=== PATIENT | male | born 1965 | race Caucasian/White ===

== ENCOUNTER 2017-03-18 14:01 | Emergency (ER) | payer OTHER, BC ==
[2017-03-18] MEDS ORDERED: Ketorolac 60 MG/2 ML SDV IM ONE (14:34)
--- NOTE | 2017-03-18 14:35 | EDM.PDOC ---
ED HPI GENERAL MEDICAL PROBLEM - General Chief Complaint: Back Pain or Injury Stated Complaint: PAIN Time Seen by Provider: 03/18/17 14:35 Source of Information: Reports: Patient - History of Present Illness INITIAL COMMENTS - FREE TEXT/NARRATIVE: HISTORY AND PHYSICAL: History of present illness: [Patient slipped while at work now presents with pain of the left buttocks/ tailbone area he rates 7 out of 10 worsened by sitting better by standing No fever nausea vomiting chills sweats no head injury or loss of consciousness no low back pain ] Review of systems: As per history of present illness and below otherwise all systems reviewed and negative. Past medical history: As per history of present illness and as reviewed below otherwise noncontributory. Surgical history: As per history of present illness and as reviewed below otherwise noncontributory. Social history: No reported history of drug or alcohol abuse. Family history: As per history of present illness and as reviewed below otherwise noncontributory. Physical exam: HEENT: Atraumatic, normocephalic, pupils reactive, negative for conjunctival pallor or scleral icterus, mucous membranes moist, throat clear, neck supple, nontender, trachea midline. Lungs: Clear to auscultation, breath sounds equal bilaterally, chest nontender. Heart: S1S2, regular, negative for clicks, rubs, or JVD. Abdomen: Soft, nondistended, nontender. Negative for masses or hepatosplenomegaly. Negative for costovertebral tenderness. Pelvis: Stable nontender. Genitourinary: Deferred. Rectal: Deferred. Extremities: Atraumatic, negative for cords or calf pain. Neurovascular unremarkable. Neuro: Awake, alert, oriented. Cranial nerves II through XII unremarkable. Cerebellum unremarkable. Motor and sensory unremarkable throughout. Exam nonfocal. Musculoskeletal tender over left gluteal no skin lesion, no vertebral point tenderness in lumbar spine slight bruising on the left buttock Diagnostics: []Pelvis Sacrum coccyx Therapeutics: []Toradol 60 IM patient refused Cataflam 50 mg by mouth 3 times a day when necessary #30 no refill Impression: []Contusion left buttock Definitive disposition and diagnosis as appropriate pending reevaluation and review of above. Lower Sacral Pain Score (Numeric/FACES): 8 - Related Data Allergies Allergy/AdvReac Type Severity Reaction Status Date / Time morphine Allergy Other Verified 03/18/17 14:18 Home Meds: Home Meds . [No Known Home Meds] 03/18/17 [History] Past Medical History - Past Surgical History GI Surgical History: Reports: Appendectomy Social & Family History - Family History Family Medical History: Noncontributory - Tobacco Use Smoking Status *Q: Former Smoker Used Tobacco, but Quit: Yes Month Tobacco Last Used: September - Caffeine Use Caffeine Use: Reports: Coffee, Soda Caffeine Use Comment: maybe 1 cup a day - Recreational Drug Use Recreational Drug Use: No ED ROS GENERAL - Review of Systems Review Of Systems: ROS reveals no pertinent complaints other than HPI. ED EXAM, GENERAL - Physical Exam Exam: See Below Course - Vital Signs Last Recorded V/S: Last Vital Signs Temp 96.5 F 03/18/17 14:19 Pulse 60 03/18/17 14:19 Resp 16 03/18/17 14:19 BP 132/81 03/18/17 15:49 Pulse Ox 97 03/18/17 15:49 - Orders/Labs/Meds Orders: Active Orders 24 hr Category Date Time Status Pelvis 1V or 2V [CR] Stat Exams 03/18/17 14:38 Taken Sacrum Coccyx Min 2V [CR] Stat Exams 03/18/17 14:35 Taken Meds: Medications Discontinued Medications Generic Name Dose Route Start Last Admin Trade Name Tiffany PROleg Reason Stop Dose Admin Ketorolac Tromethamine 60 mg 03/18/17 14:34 03/18/17 15:43 Toradol IM 03/18/17 14:35 Not Given ONETIME ONE Departure - Departure Time of Disposition: 15:58 Disposition: Home, Self-Care 01 Condition: Good Clinical Impression: Contusion - Discharge Information Referrals: PCP,Unknown [Primary Care Provider] - Forms: ED Department Discharge Additional Instructions: Medication as prescribed No need for ibuprofen or Tylenol with this medication Return if symptoms persist or worsen Follow-up with primary care occupational health in 2 weeks [facility] - Primary Care [address] [place] [id number] The following information is given to patients seen in the emergency department who are being discharged to home. This information is to outline your options for follow-up care. We provide all patients seen in our emergency department with a follow-up referral. The need for follow-up, as well as the timing and circumstances, are variable depending upon the specifics of your emergency department visit. If you don't have a primary care physician on staff, we will provide you with a referral. We always advise you to contact your personal physician following an emergency department visit to inform them of the circumstance of the visit and for follow-up with them and/or the need for any referrals to a consulting specialist. The emergency department will also refer you to a specialist when appropriate. This referral assures that you have the opportunity for follow-up care with a specialist. All of these measure are taken in an effort to provide you with optimal care, which includes your follow-up. Under all circumstances we always encourage you to contact your private physician who remains a resource for coordinating your care. When calling for follow-up care, please make the office aware that this follow-up is from your recent emergency room visit. If for any reason you are refused follow-up, please contact the [facility] emergency department at and asked to speak to the emergency department charge nurse. - My Orders Last 24 Hours: My Active Orders 03/18/17 14:35 Sacrum Coccyx Min 2V [CR] Stat 03/18/17 14:38 Pelvis 1V or 2V [CR] Stat - Assessment/Plan Last 24 Hours: My Active Orders 03/18/17 14:35 Sacrum Coccyx Min 2V [CR] Stat 03/18/17 14:38 Pelvis 1V or 2V [CR] Stat
--- NOTE | 2017-03-20 11:41 | CR ---
EXAM DATE: 03/18/17 PATIENT'S AGE: 51 Patient: MALIA KOTHARI Facility: [place], [place] Site . Site : 1965 Study: XRay Pelvis sacrum/coccyx [id number]/18/2017 3:08:00 PM Ordering Physician: Raji Grimes Final Report: INDICATION: pain TECHNIQUE: Sacrum and coccyx 2 views. COMPARISON: None. FINDINGS: Bones: Alignment is normal. No fractures or bone lesions. Joint spaces: Unremarkable. Soft tissues: Unremarkable. IMPRESSION: Unremarkable sacrum and coccyx. Dictated by: Jc Beavers MD @ 03/18/2017 15:31:31 (Electronic Signature) Report Signed by Proxy. [facility]
--- NOTE | 2017-03-20 11:42 | CR ---
EXAM DATE: 03/18/17 PATIENT'S AGE: 51 Patient: MALIA KOTHARI Facility: [place], [place] Site . Site : 1965 Study: XRay Pelvis [id number] 3:08:18 PM Ordering Physician: Raji Grimes Final Report: INDICATION: pain TECHNIQUE: Pelvis 1 view. COMPARISON: None. FINDINGS: Bones: Alignment is normal. No fractures or bone lesions. Joint spaces: Unremarkable. Soft tissues: Unremarkable. IMPRESSION: Unremarkable pelvis. Dictated by: Jc Beavers MD @ 03/18/2017 15:32:54 (Electronic Signature) Report Signed by Proxy. [facility]
== END 2017-03-18 16:13 | disposition home or self-care (01) ==
LOC: MW.ED 14:01
DX: S30.0XXA Contusion of lower back and pelvis, initial encounter (principal); Z88.5 Allergy status to narcotic agent; Z87.891 Personal history of nicotine dependence; W01.0XXA Fall on same level from slipping, tripping and stumbling without subsequent striking against object, initial encounter
CPT/HCPCS: 72170; 72170-26; 72220; 72220-26; 99283

== ENCOUNTER 2018-08-27 08:07 | Day surgery (SDC) | payer BC ==
[~2018-08-27 08:07] MED LIST: Lactated Ringers 1,000 ML IV SCH
[2018-08-27] MEDS ORDERED: Midazolam 1 MG/ML 2 ML SDV ONE (09:44)
[2018-08-27] MEDS ORDERED: fentaNYL 100 MCG/2 ML SDV ONE (09:44)
[2018-08-27] MEDS ORDERED: Lidocaine 2% 5 ML SDV ONE (09:45)
[2018-08-27] MEDS ORDERED: Propofol 200 MG/20 ML SDV ONE (09:45)
--- NOTE | 2018-08-27 10:03 | PCM.PREANE ---
Preanesthetic Assessment - Anesthesia/Transfusion/Family Hx Anesthesia History: Prior Anesthesia Without Reaction Family History of Anesthesia Reaction: No Transfusion History: No Prior Transfusion(s) Intubation History: Unknown - Review of Systems General: No Symptoms Pulmonary: No Symptoms Cardiovascular: No Symptoms Gastrointestinal: No Symptoms, Other (screening colonoscopy) Neurological: No Symptoms Other: Reports: None - Physical Assessment O2 Sat by Pulse Oximetry: 95 Respiratory Rate: 16 Vital Signs: Last Vital Signs Temp 37.3 C 08/27/18 09:30 Pulse 80 08/27/18 09:30 Resp 16 08/27/18 09:30 BP 121/85 08/27/18 09:30 Pulse Ox 95 08/27/18 09:30 Height: 1.68 m Weight: 92.079 kg ASA Class: 2 Mental Status: Alert & Oriented x3 Airway Class: Mallampati = 2 Dentition: Reports: Normal Dentition, Missing Tooth/Teeth (upper front x1 (left) ) Thyro-Mental Finger Breadths: 3 Mouth Opening Finger Breadths: 3 ROM/Head Extension: Full Lungs: Clear to Auscultation, Normal Respiratory Effort Cardiovascular: Regular Rate, Regular Rhythm - Allergies Allergies/Adverse Reactions: Allergies Allergy/AdvReac Type Severity Reaction Status Date / Time morphine Allergy Headache Verified 08/23/18 10:32 - Blood Blood Available: No - Anesthesia Plan Pre-Op Medication Ordered: None - Acknowledgements Anesthesia Type Planned: MAC Pt an Appropriate Candidate for the Planned Anesthesia: Yes Alternatives and Risks of Anesthesia Discussed w Pt/Guardian: Yes Pt/Guardian Understands and Agrees with Anesthesia Plan: Yes PreAnesthesia Questionnaire HEENT History: Reports: Other (See Below) Other HEENT History: reading glasses Cardiovascular History: Reports: Hypertension Respiratory History: Reports: None Gastrointestinal History: Reports: Other (See Below) Other Gastrointestinal History: occasional heartburn Genitourinary History: Reports: None Musculoskeletal History: Reports: Fracture Other Musculoskeletal History: hx fx rt hand Neurological History: Reports: None Psychiatric History: Reports: None Endocrine/Metabolic History: Reports: Obesity/BMI 30+, Other (See Below) ( elevated glucose levels) Hematologic History: Reports: None Immunologic History: Reports: None Oncologic (Cancer) History: Reports: None Dermatologic History: Reports: None - Past Surgical History Head Surgeries/Procedures: Reports: None HEENT Surgical History: Reports: None Cardiovascular Surgical History: Reports: None Respiratory Surgical History: Reports: None GI Surgical History: Reports: Appendectomy, Cholecystectomy Male Surgical History: Reports: None Endocrine Surgical History: Reports: None Neurological Surgical History: Reports: None Musculoskeletal Surgical History: Reports: None Oncologic Surgical History: Reports: None Dermatological Surgical History: Reports: None - SUBSTANCE USE Smoking Status *Q: Former Smoker Recreational Drug Use History: No - HOME MEDS Home Medications: Home Meds Lisinopril/Hydrochlorothiazide [Lisinopril-Hctz 20-12.5 mg Tab] 1 tab PO DAILY 08/23/18 [History] Nystatin [Nyamyc] 1 applic TOP ASDIRECTED PRN 08/23/18 [History] - CURRENT (IN HOUSE) MEDS Current Meds: Current Medications Lactated Ringer's (Ringers, Lactated) 1,000 mls @ 125 mls/hr IV ASDIRECTED SUZANNE Last Admin: 08/27/18 08:45 Dose: 125 mls/hr Discontinued Medications Fentanyl (Sublimaze) Confirm Administered Dose 100 mcg .ROUTE .STK-MED ONE Stop: 08/27/18 09:45 Lidocaine (Xylocaine-Mpf 2%) Confirm Administered Dose 5 ml .ROUTE .STK-MED ONE Stop: 08/27/18 09:46 Midazolam HCl (Versed 1 Mg/Ml) Confirm Administered Dose 2 mg .ROUTE .STK-MED ONE Stop: 08/27/18 09:45 Propofol (Diprivan 20 Ml) Confirm Administered Dose 400 mg .ROUTE .STK-MED ONE Stop: 08/27/18 09:46
[2018-08-27] MEDS ORDERED: Lactated Ringers 1,000 ML IV SCH (10:45)
--- NOTE | 2018-08-27 10:45 | PCM.OPNOTE ---
- General Post-Op/Procedure Note Date of Surgery/Procedure: 08/27/18 Operative Procedure(s): Colonoscopy with cold transverse colon and sigmoid polypectomies Pre Op Diagnosis: Desire for colorectal cancer screening Post-Op Diagnosis: Transverse colon and sigmoid polyps. Mild transverse colon and sigmoid diverticulosis. Anesthesia Technique: MAC Primary Surgeon: Eusebio Olivera Condition: Good Free Text/Narrative:: DICTATION [id number] CPT CODE 84151
--- NOTE | 2018-08-27 11:04 | OR ---
SURGEON: Eusebio Olivera M.D. DATE OF PROCEDURE: 08/27/2018 OPERATION PERFORMED: Colonoscopy with transverse colon and sigmoid polypectomy. ANESTHESIA: MAC. ASA CLASSIFICATION: II. PREOPERATIVE DIAGNOSIS: Desire for colorectal cancer screening. POSTOPERATIVE DIAGNOSES: 1. Transverse colon polyp. 2. Sigmoid polyp. 3. Mild diverticulosis. DESCRIPTION OF PROCEDURE: The patient was taken to the endoscopy room and positioned on the endoscopy table in the left lateral decubitus position. Time-out was called for appropriate identification of the patient and procedure. Monitored anesthesia care was provided. The colonoscope was inserted into the rectum and advanced with minimal difficulty to the cecum where the colonoscope was retroflexed to visualize the ascending colon from below. The colonoscope was then straightened and slowly withdrawn. The cecum, ascending colon, hepatic flexure, proximal and mid transverse colon showed no tumors, polyps, diverticula, or angiodysplastic changes. One small polyp was encountered in the distal transverse colon and removed with the cold biopsy forceps. No polyps or tumors were seen at the splenic flexure or in the descending colon. A few small scattered diverticula were noted throughout the transverse colon and sigmoid colon. One small polyp was encountered in the sigmoid colon and likewise removed with cold biopsy forceps. The colonoscope was then withdrawn to the rectum and retroflexed to visualize the anal orifice from above. No tumors, polyps, or acute hemorrhoidal changes were noted. The colonoscope was then straightened, the rectum aspirated, and the colonoscope removed. The patient tolerated the procedure well and was taken to recovery room in satisfactory condition. KEERTHI WEINER /[id number]
--- NOTE | 2018-08-27 11:21 | PCM48HPAN ---
Post Anesthesia Note - EVALUATION WITHIN 48HRS OF ANESTHETIC Vital Signs in Normal Range: Yes Patient Participated in Evaluation: Yes Respiratory Function Stable: Yes Airway Patent: Yes Cardiovascular Function Stable: Yes Hydration Status Stable: Yes Pain Control Satisfactory: Yes Nausea and Vomiting Control Satisfactory: Yes Mental Status Recovered: Yes Resp Rate: 12 - COMMENTS/OBSERVATIONS Free Text/Narrative:: no anesthesia problems
== END 2018-08-27 11:25 | disposition home or self-care (01) ==
LOC: MW.SDS 08:07
PROVIDERS: ATTEND Surgery
DX: Z12.11 Encounter for screening for malignant neoplasm of colon (principal); D12.3 Benign neoplasm of transverse colon; D12.5 Benign neoplasm of sigmoid colon; K57.30 Diverticulosis of large intestine without perforation or abscess without bleeding; I10 Essential (primary) hypertension; B35.6 Tinea cruris; Z88.5 Allergy status to narcotic agent; Z87.891 Personal history of nicotine dependence; Z79.899 Other long term (current) drug therapy
CPT/HCPCS: 45380; J2001; J2250; J2704; J3010; J7120; 88305

== ENCOUNTER 2018-10-29 13:11 | Emergency (ER) | payer BC ==
--- NOTE | 2018-10-29 13:36 | EDM.PDOC ---
ED HPI GENERAL MEDICAL PROBLEM - General Chief Complaint: Lower Extremity Injury/Pain Stated Complaint: RIGHT ANKLE TWISTED Time Seen by Provider: 10/29/18 13:13 Source of Information: Reports: Patient History Limitations: Reports: No Limitations - History of Present Illness INITIAL COMMENTS - FREE TEXT/NARRATIVE: HISTORY AND PHYSICAL: History of present illness: Patient is a 53-year-old male presents to the ED today with concern of right ankle injury that occurred 2 days ago. Patient states he was at work and had stepped in a hole and twisted his right ankle. Patient states she's been able to walk on it without difficulty but noticed yesterday and today it is swollen with a little bit of bruising around the ankle. Patient denies any prior injury to the ankle. Patient denies any health history. Patient denies fever, chills, chest pain, shortness of breath, or cough. Denies headache, neck stiff ness, change in vision, syncope, or near syncope. Denies nausea, vomiting, abdominal pain, diarrhea, constipation, or dysuria. Has not noted any blood in urine or stool. Patient has been eating and drinking appropriately. Review of systems: As per history of present illness and below otherwise all systems reviewed and negative. Past medical history: As per history of present illness and as reviewed below otherwise noncontributory. Surgical history: As per history of present illness and as reviewed below otherwise noncontributory. Social history: See social history for further information Family history: As per history of present illness and as reviewed below otherwise noncontributory. Physical exam: General: Patient is alert, oriented, and in no acute distress. Patient sitting comfortably on exam table. HEENT: Atraumatic, normocephalic, pupils equal and reactive bilaterally, negative for conjunctival pallor or scleral icterus, mucous membranes moist, TMs normal bilaterally, throat clear, neck supple, nontender, trachea midline. No drooling or trismus noted. No meningeal signs. No hot potato voice noted. Lungs: Clear to auscultation, breath sounds equal bilaterally, chest nontender. Heart: S1S2, regular rate and rhythm without overt murmur Abdomen: Soft, nondistended, nontender. Negative for masses or hepatosplenomegaly. Negative for costovertebral tenderness. Pelvis: Stable nontender. Genitourinary: Deferred. Rectal: Deferred. Skin: Intact, warm, dry. No lesions or rashes noted. Extremities: Negative for cords or calf pain. Neurovascular unremarkable. Moderate edema of the right ankle with some bruising around the medial and lateral malleolus. Patient does have full range of motion of the ankle/knee/ digits with some mild pain to palpation of the generalized ankle. Dorsalis pedis and posterior tibial pulses are grossly intact with capillary refill less than 2 seconds. Neuro: Awake, alert, oriented. Cranial nerves II through XII unremarkable. Cerebellum unremarkable. Motor and sensory unremarkable throughout. Exam nonfocal. Notes: Discussed the importance for follow-up with a primary care provider. Voices understanding and is agreeable to plan of care. Denies any further questions or concerns at this time. Diagnostics: Ankle x-ray, but x-ray Therapeutics: Patient declines any therapeutics including pain medication, walking boots, and crutches Prescription: Patient declines Impression: Right ankle sprain Plan: 1. Rest, ice, elevate the affected extremity. You can apply ice 15 minutes on, 15 minutes off. 2. Tylenol and/or Ibuprofen as directed for pain management or discomfort. 3. Follow up with the primary care provider as discussed. Return to the ED as needed and as discussed. Definitive disposition and diagnosis as appropriate pending reevaluation and review of above. - Related Data Allergies Allergy/AdvReac Type Severity Reaction Status Date / Time morphine Allergy Headache Verified 10/29/18 13:24 Home Meds: Home Meds Lisinopril/Hydrochlorothiazide [Lisinopril-Hctz 20-12.5 mg Tab] 1 tab PO DAILY 08/23/18 [History] Nystatin [[facility]] 1 applic TOP ASDIRECTED PRN 08/23/18 [History] Past Medical History HEENT History: Reports: Other (See Below) Other HEENT History: reading glasses Cardiovascular History: Reports: Hypertension Respiratory History: Reports: None Gastrointestinal History: Reports: Other (See Below) Other Gastrointestinal History: occasional heartburn Genitourinary History: Reports: None Musculoskeletal History: Reports: Fracture Other Musculoskeletal History: hx fx rt hand Neurological History: Reports: None Psychiatric History: Reports: None Endocrine/Metabolic History: Reports: Obesity/BMI 30+ Hematologic History: Reports: None Immunologic History: Reports: None Oncologic (Cancer) History: Reports: None Dermatologic History: Reports: None - Infectious Disease History Infectious Disease History: Reports: Mumps - Past Surgical History Head Surgeries/Procedures: Reports: None HEENT Surgical History: Reports: None Cardiovascular Surgical History: Reports: None Respiratory Surgical History: Reports: None GI Surgical History: Reports: Appendectomy, Cholecystectomy Male Surgical History: Reports: None Endocrine Surgical History: Reports: None Neurological Surgical History: Reports: None Musculoskeletal Surgical History: Reports: None Oncologic Surgical History: Reports: None Dermatological Surgical History: Reports: None Social & Family History - Family History Family Medical History: Noncontributory - Tobacco Use Smoking Status *Q: Former Smoker Used Tobacco, but Quit: Yes Month/Year Tobacco Last Used: 2016 - Caffeine Use Caffeine Use: Reports: Coffee, Soda Caffeine Use Comment: maybe 1 cup a day - Recreational Drug Use Recreational Drug Use: No Review of Systems - Review of Systems Review Of Systems: ROS reveals no pertinent complaints other than HPI. ED EXAM, GENERAL - Physical Exam Exam: See Below (ssee dictation) Course - Vital Signs Last Recorded V/S: Last Vital Signs Temp 35.9 C 10/29/18 13:21 Pulse 78 10/29/18 13:21 Resp 18 10/29/18 13:21 BP 117/79 10/29/18 13:21 Pulse Ox 99 10/29/18 13:21 Departure - Departure Time of Disposition: 14:04 Disposition: Home, Self-Care 01 Clinical Impression: Right ankle sprain Qualifiers: Encounter type: initial encounter Involved ligament of ankle: unspecified ligament Qualified Code(s): S93.401A - Sprain of unspecified ligament of right ankle, initial encounter - Discharge Information Forms: ED Department Discharge Additional Instructions: The following information is given to patients seen in the emergency department who are being discharged to home. This information is to outline your options for follow-up care. We provide all patients seen in our emergency department with a follow-up referral. The need for follow-up, as well as the timing and circumstances, are variable depending upon the specifics of your emergency department visit. If you don't have a primary care physician on staff, we will provide you with a referral. We always advise you to contact your personal physician following an emergency department visit to inform them of the circumstance of the visit and for follow-up with them and/or the need for any referrals to a consulting specialist. The emergency department will also refer you to a specialist when appropriate. This referral assures that you have the opportunity for follow-up care with a specialist. All of these measure are taken in an effort to provide you with optimal care, which includes your follow-up. Under all circumstances we always encourage you to contact your private physician who remains a resource for coordinating your care. When calling for follow-up care, please make the office aware that this follow-up is from your recent emergency room visit. If for any reason you are refused follow-up, please contact the [facility] Emergency Department at and asked to speak to the emergency department charge nurse. [facility] [address] [place] [id number] [facility] [address] [place] [id number] 1. Rest, ice, elevate the affected extremity. You can apply ice 15 minutes on, 15 minutes off. 2. Tylenol and/or Ibuprofen as directed for pain management or discomfort. 3. Follow up with the primary care provider as discussed. Return to the ED as needed and as discussed.
--- NOTE | 2018-10-29 14:00 | CR ---
EXAMINATION: Right foot and right ankle HISTORY: Injury COMPARISON: None TECHNIQUE: 2 views of the right foot and 3 views of the right ankle FINDINGS: There is no acute osseous abnormality, dislocation, or fracture. Bone mineralization and joint spaces are grossly preserved. Ankle mortise is intact. Tiny well-corticated ossific density inferior to the medial malleolus. Soft tissue swelling noted surrounding the right ankle, most prominent over the malleoli. Mild osteophyte formation and subchondral cystic change within the tibiotalar joint. Well-corticated ossific densities noted adjacent to the base of the fifth metatarsal. IMPRESSION: 1. No acute osseous abnormality. 2. Soft tissue swelling adjacent to the right ankle. 3. Early degenerative changes within the tibiotalar joint.
== END 2018-10-29 14:16 | disposition home or self-care (01) ==
LOC: MW.ED 13:11
DX: S93.401A Sprain of unspecified ligament of right ankle, initial encounter (principal); I10 Essential (primary) hypertension; E66.9 Obesity, unspecified; Z79.899 Other long term (current) drug therapy; Z90.49 Acquired absence of other specified parts of digestive tract; Z87.891 Personal history of nicotine dependence; X50.1XXA Overexertion from prolonged static or awkward postures, initial encounter
CPT/HCPCS: 73610-26-RT; 73610-RT; 73620-26-RT; 73620-RT; 99283-25

== ENCOUNTER 2019-01-07 12:41 | Emergency (ER) | payer BC ==
--- NOTE | 2019-01-07 13:17 | EDM.PDOC ---
ED HPI GENERAL MEDICAL PROBLEM - General Chief Complaint: ENT Problem Stated Complaint: RIGHT EAR PAIN Time Seen by Provider: 01/07/19 13:14 Source of Information: Reports: Patient History Limitations: Reports: No Limitations - History of Present Illness INITIAL COMMENTS - FREE TEXT/NARRATIVE: HISTORY AND PHYSICAL: History of present illness: Patient is a 53-year-old male presents to the ED with complaint of right ear pain. He states it started 1 week ago after he had clean out his ears. Denies fevers, chills, nausea, vomiting, headache. Review of systems: As per history of present illness and below otherwise all systems reviewed and negative. Past medical history: As per history of present illness and as reviewed below otherwise noncontributory. Surgical history: As per history of present illness and as reviewed below otherwise noncontributory. Social history: No reported history of drug or alcohol abuse. Family history: As per history of present illness and as reviewed below otherwise noncontributory. Physical exam: General: Patient sitting comfortably in no acute distress and nontoxic appearing HEENT: Right TM is erythematous and bulging. Right ear canal is swollen with otorrhea. Atraumatic, normocephalic, pupils reactive, negative for conjunctival pallor or scleral icterus, mucous membranes moist, throat clear, neck supple, nontender, trachea midline. No meningeal signs. Lungs: Clear to auscultation, breath sounds equal bilaterally, chest nontender. Heart: S1S2, regular, negative for clicks, rubs, or overt murmur. Abdomen: Soft, nondistended, nontender. Negative for masses or hepatosplenomegaly. Negative for costovertebral tenderness. No rigidity, rebound , guarding. Pelvis: Stable nontender. Genitourinary: Deferred. Rectal: Deferred. Extremities: Atraumatic, negative for cords or calf pain. Neurovascular unremarkable. Neuro: Awake, alert, oriented. Cranial nerves II through XII unremarkable. Cerebellum unremarkable. Motor and sensory unremarkable throughout. Exam nonfocal. Notes: Diagnostics: [] Therapeutics: [] Prescriptions: Augmentin Ciprodex Impression: Right otitis media, right otitis externa Plan: Alternate tylenol and ibuprofen as needed Take antibiotic as instructed Follow up with primary care provider Return to ED as needed as discussed Definitive disposition and diagnosis as appropriate pending reevaluation and review of above. Right Ear Pain Score (Numeric/FACES): 7 - Related Data Allergies Allergy/AdvReac Type Severity Reaction Status Date / Time morphine Allergy Headache Verified 10/29/18 13:24 Home Meds: Home Meds Lisinopril/Hydrochlorothiazide [Lisinopril-Hctz 20-12.5 mg Tab] 1 tab PO DAILY 08/23/18 [History] Amoxicillin/Potassium Clav [Augmentin 875-125 Tablet] 1 each PO BID 7 Days #14 tablet 01/07/19 [Rx] Ciprofloxacin/Hydrocortisone [Cipro HC Otic Susp] 1 drop OT BID #1 bottle [Rx] Past Medical History HEENT History: Reports: Other (See Below) Other HEENT History: reading glasses Cardiovascular History: Reports: Hypertension Respiratory History: Reports: None Gastrointestinal History: Reports: Other (See Below) Other Gastrointestinal History: occasional heartburn Genitourinary History: Reports: None Musculoskeletal History: Reports: Fracture Other Musculoskeletal History: hx fx rt hand Neurological History: Reports: None Psychiatric History: Reports: None Endocrine/Metabolic History: Reports: Obesity/BMI 30+ Hematologic History: Reports: None Immunologic History: Reports: None Oncologic (Cancer) History: Reports: None Dermatologic History: Reports: None - Infectious Disease History Infectious Disease History: Reports: Chicken Pox, Measles, Mumps - Past Surgical History Head Surgeries/Procedures: Reports: None HEENT Surgical History: Reports: None Cardiovascular Surgical History: Reports: None Respiratory Surgical History: Reports: None GI Surgical History: Reports: Appendectomy, Cholecystectomy Male Surgical History: Reports: None Endocrine Surgical History: Reports: None Neurological Surgical History: Reports: None Musculoskeletal Surgical History: Reports: None Oncologic Surgical History: Reports: None Dermatological Surgical History: Reports: None Social & Family History - Family History Family Medical History: Noncontributory - Tobacco Use Smoking Status *Q: Former Smoker Years of Tobacco use: 35 Packs/Tins Daily: 1 Used Tobacco, but Quit: Yes Month/Year Tobacco Last Used: 2year - Caffeine Use Caffeine Use: Reports: Soda Caffeine Use Comment: maybe 1 cup a day - Recreational Drug Use Recreational Drug Use: No ED ROS ENT - Review of Systems Review Of Systems: ROS reveals no pertinent complaints other than HPI. ED EXAM, ENT - Physical Exam Exam: See Below (see dictation) Course - Vital Signs Last Recorded V/S: Last Vital Signs Temp 97.4 F 01/07/19 13:04 Pulse 83 01/07/19 13:04 Resp 16 01/07/19 13:04 BP 120/84 01/07/19 13:04 Pulse Ox 95 01/07/19 13:04 Departure - Departure Time of Disposition: 13:16 Disposition: Home, Self-Care 01 Condition: Good Clinical Impression: Right otitis media, Right otitis externa - Discharge Information Referrals: PCP,Unknown [Primary Care Provider] - Additional Instructions: The following information is given to patients seen in the emergency department who are being discharged to home. This information is to outline your options for follow-up care. We provide all patients seen in our emergency department with a follow-up referral. The need for follow-up, as well as the timing and circumstances, are variable depending upon the specifics of your emergency department visit. If you don't have a primary care physician on staff, we will provide you with a referral. We always advise you to contact your personal physician following an emergency department visit to inform them of the circumstance of the visit and for follow-up with them and/or the need for any referrals to a consulting specialist. The emergency department will also refer you to a specialist when appropriate. This referral assures that you have the opportunity for follow-up care with a specialist. All of these measure are taken in an effort to provide you with optimal care, which includes your follow-up. Under all circumstances we always encourage you to contact your private physician who remains a resource for coordinating your care. When calling for follow-up care, please make the office aware that this follow-up is from your recent emergency room visit. If for any reason you are refused follow-up, please contact the [facility] Emergency Department at and asked to speak to the emergency department charge nurse. [facility] [address] [place] [id number] [facility] [address] [place] [id number] Alternate tylenol and ibuprofen as needed Take antibiotic as instructed Follow up with primary care provider Return to ED as needed as discussed
== END 2019-01-07 13:30 | disposition home or self-care (01) ==
LOC: MW.ED 12:41
DX: H66.91 Otitis media, unspecified, right ear (principal); H60.91 Unspecified otitis externa, right ear; I10 Essential (primary) hypertension; Z88.5 Allergy status to narcotic agent; Z79.899 Other long term (current) drug therapy; Z87.891 Personal history of nicotine dependence
CPT/HCPCS: 99282

== ENCOUNTER 2019-05-21 16:18 | Emergency (ER) | payer BC ==
[2019-05-21] MEDS ORDERED: Ketorolac 60 MG/2 ML SDV IM ONE (17:34)
--- NOTE | 2019-05-21 18:05 | CR ---
Chest: 2 views of the chest were obtained. Comparison: No previous chest x-ray is available. Heart size and mediastinum are normal. Lungs are clear with no acute parenchymal change. Mild degenerative change is scattered within the spine. Impression: 1. Nothing acute is seen on 2 view chest x-ray. Diagnostic code #1 This report was dictated in Mountain Standard Time
--- NOTE | 2019-05-21 18:07 | EDM.PDOC ---
ED HPI GENERAL MEDICAL PROBLEM - General Chief Complaint: ENT Problem Stated Complaint: FLU SYMPTOMS Time Seen by Provider: 05/21/19 17:32 Source of Information: Reports: Patient History Limitations: Reports: No Limitations - History of Present Illness INITIAL COMMENTS - FREE TEXT/NARRATIVE: HISTORY AND PHYSICAL: History of present illness: Patient is a 54-year-old male who presents to the emergency room today with complaints of flulike symptoms over the past days. He states he has had generalized body aches, subjective fever, chills, cough and generally feeling unwell. He states he is skipped several days of work due to the symptoms. Patient denies any fever, chills, headache, change in vision, syncope or near syncope. Denies any chest pain, back pain, shortness of breath or cough. Denies any GI or symptoms. Patient has been eating and drinking appropriately. Review of systems: As per history of present illness and below otherwise all systems reviewed and negative. Past medical history: As per history of present illness and as reviewed below otherwise noncontributory. Surgical history: As per history of present illness and as reviewed below otherwise noncontributory. Social history: See social history for further information Family history: As per history of present illness and as reviewed below otherwise noncontributory. Physical exam: General: Well-developed and well-nourished 54-year-old male. Alert and oriented. Nontoxic-appearing and in no acute distress. HEENT: Atraumatic, normocephalic, pupils equal and reactive bilaterally, negative for conjunctival pallor or scleral icterus, mucous membranes moist, TMs normal bilaterally, throat clear, neck supple, nontender, trachea midline. No drooling or trismus noted. No meningeal signs. No hot potato voice noted. Lungs: Clear to auscultation, breath sounds equal bilaterally, chest nontender. Dry harsh nonproductive cough is noted. Heart: S1S2, regular rate and rhythm without overt murmur Abdomen: Soft, nondistended, nontender. Negative for masses or hepatosplenomegaly. Negative for costovertebral tenderness. Pelvis: Stable nontender. Skin: Intact, warm, dry. No lesions or rashes noted. Extremities: Atraumatic, moves all extremities per self without difficulty or deficits, negative for cords or calf pain. Neurovascular unremarkable. Neuro: Awake, alert, oriented. Cranial nerves II through XII unremarkable. Cerebellum unremarkable. Motor and sensory unremarkable throughout. Exam nonfocal. Notes: Patient is positive for influenza. Other diagnostics are unremarkable. Supportive care measures were reviewed and discussed. Voices understanding and is agreeable to plan of care. Denies any further questions or concerns at this time. Diagnostics: Influenza, strep, chest x-ray Therapeutics: Toradol Prescription: Guaifenesin w/ Cod (#4oz) Impression: Influenza A Plan: 1. Standard contact precautions (covering mouth while coughing, avoid sharing drinking cups and eating utensils). Please make sure you're doing good handwashing as this is contagious. 2. You can use the medication as directed for comfort purposes. Do not take this medication before going to work or when needing to drive as it can cause drowsiness. 3. Supportive care measures such as Tylenol and/or ibuprofen for pain and fever management.Encourage small frequent sips of fluids to prevent dehydration. 4. 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 Return to the ED as needed and as discussed. Definitive disposition and diagnosis as appropriate pending reevaluation and review of above. cough Pain Score (Numeric/FACES): 7 - Related Data Allergies Allergy/AdvReac Type Severity Reaction Status Date / Time morphine Allergy Headache Verified 05/21/19 17:00 Home Meds: Home Meds Lisinopril/Hydrochlorothiazide [Lisinopril-Hctz 20-12.5 mg Tab] 1 tab PO DAILY 08/23/18 [History] Past Medical History HEENT History: Reports: Other (See Below) Other HEENT History: reading glasses Cardiovascular History: Reports: Hypertension Respiratory History: Reports: None Gastrointestinal History: Reports: Other (See Below) Other Gastrointestinal History: occasional heartburn Genitourinary History: Reports: None Musculoskeletal History: Reports: Fracture Other Musculoskeletal History: hx fx rt hand Neurological History: Reports: None Psychiatric History: Reports: None Endocrine/Metabolic History: Reports: Obesity/BMI 30+ Hematologic History: Reports: None Immunologic History: Reports: None Oncologic (Cancer) History: Reports: None Dermatologic History: Reports: None - Infectious Disease History Infectious Disease History: Reports: Chicken Pox, Mumps - Past Surgical History Head Surgeries/Procedures: Reports: None HEENT Surgical History: Reports: None Cardiovascular Surgical History: Reports: None Respiratory Surgical History: Reports: None GI Surgical History: Reports: Appendectomy, Cholecystectomy Male Surgical History: Reports: None Endocrine Surgical History: Reports: None Neurological Surgical History: Reports: None Musculoskeletal Surgical History: Reports: None Oncologic Surgical History: Reports: None Dermatological Surgical History: Reports: None Social & Family History - Family History Family Medical History: Noncontributory - Tobacco Use Smoking Status *Q: Former Smoker Years of Tobacco use: 40 Packs/Tins Daily: 1 Used Tobacco, but Quit: Yes Month/Year Tobacco Last Used: 2year - Caffeine Use Caffeine Use: Reports: Coffee Caffeine Use Comment: maybe 1 cup a day - Recreational Drug Use Recreational Drug Use: No ED ROS ENT - Review of Systems Review Of Systems: Comprehensive ROS is negative, except as noted in HPI. ED EXAM, ENT - Physical Exam Exam: See Below (See dictation) Course - Vital Signs Last Recorded V/S: Last Vital Signs Temp 99.1 F 05/21/19 17:35 Pulse 112 H 05/21/19 17:35 Resp 222 H 05/21/19 17:35 BP 106/84 05/21/19 17:35 Pulse Ox 96 05/21/19 17:35 - Orders/Labs/Meds Orders: Active Orders 24 hr Category Date Time Status CULTURE STREP A CONFIRMATION [] Stat Lab 05/21/19 17:10 Results STREP SCRN A RAPID W CULT CONF [] Stat Lab 05/21/19 17:10 Results Meds: Medications Discontinued Medications Generic Name Dose Route Start Last Admin Trade Name Abq PRN Reason Stop Dose Admin Ketorolac Tromethamine 60 mg 05/21/19 17:34 05/21/19 17:52 Toradol IM 05/21/19 17:35 60 mg ONETIME ONE Administration Departure - Departure Time of Disposition: 18:08 Disposition: Home, Self-Care 01 Clinical Impression: Influenza A - Discharge Information Instructions: Influenza, Adult, [id number] Referrals: PCP,None [Primary Care Provider] - Forms: ED Department Discharge Additional Instructions: The following information is given to patients seen in the emergency department who are being discharged to home. This information is to outline your options for follow-up care. We provide all patients seen in our emergency department with a follow-up referral. The need for follow-up, as well as the timing and circumstances, are variable depending upon the specifics of your emergency department visit. If you don't have a primary care physician on staff, we will provide you with a referral. We always advise you to contact your personal physician following an emergency department visit to inform them of the circumstance of the visit and for follow-up with them and/or the need for any referrals to a consulting specialist. The emergency department will also refer you to a specialist when appropriate. This referral assures that you have the opportunity for follow-up care with a specialist. All of these measure are taken in an effort to provide you with optimal care, which includes your follow-up. Under all circumstances we always encourage you to contact your private physician who remains a resource for coordinating your care. When calling for follow-up care, please make the office aware that this follow-up is from your recent emergency room visit. If for any reason you are refused follow-up, please contact the [facility] Emergency Department at and asked to speak to the emergency department charge nurse. [facility] [address] [place] [id number] [place] [id number] 1. Standard contact precautions (covering mouth while coughing, avoid sharing drinking cups and eating utensils). Please make sure you're doing good handwashing as this is contagious. May return to work when you are FEVER free for 24 hours. 2. You can use the medication as directed for comfort purposes. Do not take this medication before going to work or when needing to drive as it can cause drowsiness. 3. Supportive care measures such as Tylenol and/or ibuprofen for pain and fever management.Encourage small frequent sips of fluids to prevent dehydration. 4. 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 Return to the ED as needed and as discussed. Sepsis Event Note - Evaluation Sepsis Screening Result: No Definite Risk - Focused Exam Vital Signs: Vital Signs Temp Pulse Resp BP Pulse Ox 05/21/19 17:35 99.1 F 112 H 222 H 106/84 96 05/21/19 17:02 98.9 F 110 H 16 119/79 95 Date Exam was Performed: 05/21/19 Time Exam was Performed: 18:07
== END 2019-05-21 18:20 | disposition home or self-care (01) ==
LOC: MW.ED 16:18
DX: J10.1 Influenza due to other identified influenza virus with other respiratory manifestations (principal); I10 Essential (primary) hypertension; E66.9 Obesity, unspecified; Z88.5 Allergy status to narcotic agent; Z90.49 Acquired absence of other specified parts of digestive tract; Z87.891 Personal history of nicotine dependence
CPT/HCPCS: 71046; 87081; 87804; 87880; 96372; 99283; J1885

== ENCOUNTER 2021-04-17 09:08 | Emergency (ER) | payer BC ==
[2021-04-17] MEDS ORDERED: Sodium Chloride 0.9% 10 ML Syringe FLUSH PRN (09:29)
[2021-04-17] MEDS ORDERED: Sodium Chloride 0.9% 2.5 ML Syringe FLUSH PRN (09:29)
[2021-04-17] MEDS ORDERED: Ondansetron 4 MG/2 ML SDV IVPUSH ONE (09:30)
[2021-04-17] MEDS ORDERED: Lactated Ringers 1,000 ML IV ONE (09:30)
--- NOTE | 2021-04-17 09:33 | EDM.PDOC ---
ED HPI GENERAL MEDICAL PROBLEM - General Chief Complaint: General Stated Complaint: CANT KEEP ANYTHING DOWN/EAT Time Seen by Provider: 04/17/21 09:12 - History of Present Illness INITIAL COMMENTS - FREE TEXT/NARRATIVE: 55-year-old male presents with inability to keep down food for the last several days. Patient felt ill with Covid-like symptoms on April 04 he tested positive for COVID-19 on April 09. Essentially since the he is only been able to keep down water. He has a very hard time with odor and taste. Anytime he has any type of food or flavorings he ends up throwing it up. He has not had diarrhea but has had some stool urgency no fevers he has some exertional dyspnea but no chest pain no abdominal pain. Patient has lost approximately 15 pounds over the course of his illness. No alleviating factors further nausea vomiting. - Related Data Allergies Allergy/AdvReac Type Severity Reaction Status Date / Time morphine Allergy Headache Verified 04/17/21 09:16 Home Meds: Home Meds Lisinopril/Hydrochlorothiazide [Lisinopril-Hctz 20-12.5 mg Tab] 1 tab PO DAILY 08/23/18 [History] Ondansetron [Zofran ODT] 4 mg PO Q6H PRN 4 Days #16 tab.dis 04/17/21 [Rx] Prochlorperazine Maleate [Compazine] 10 mg PO TID PRN 4 Days #12 tablet 04/17/21 [Rx] Past Medical History HEENT History: Reports: Other (See Below) Other HEENT History: reading glasses Cardiovascular History: Reports: Hypertension Respiratory History: Reports: None Gastrointestinal History: Reports: Other (See Below) Other Gastrointestinal History: occasional heartburn Genitourinary History: Reports: None Musculoskeletal History: Reports: Fracture Other Musculoskeletal History: hx fx rt hand Neurological History: Reports: None Psychiatric History: Reports: None Endocrine/Metabolic History: Reports: Obesity/BMI 30+ Hematologic History: Reports: None Immunologic History: Reports: None Oncologic (Cancer) History: Reports: None Dermatologic History: Reports: None - Infectious Disease History Infectious Disease History: Reports: Chicken Pox, Mumps - Past Surgical History Head Surgeries/Procedures: Reports: None HEENT Surgical History: Reports: None Cardiovascular Surgical History: Reports: None Respiratory Surgical History: Reports: None GI Surgical History: Reports: Appendectomy, Cholecystectomy Male Surgical History: Reports: None Endocrine Surgical History: Reports: None Neurological Surgical History: Reports: None Musculoskeletal Surgical History: Reports: None Oncologic Surgical History: Reports: None Dermatological Surgical History: Reports: None Social & Family History - Family History Family Medical History: No Pertinent Family History - Tobacco Use Tobacco Use Status *Q: Never Tobacco User - Caffeine Use Caffeine Use: Reports: Coffee Caffeine Use Comment: maybe 1 cup a day - Recreational Drug Use Recreational Drug Use: No ED ROS GENERAL - Review of Systems Review Of Systems: See Below Free Text/Narrative/Comment: General: Per HPI Skin: No rash. Eyes: No vision problems. ENT: No sore throat. Neck: No neck stiffness. Respiratory: Per HPI Cardiac: No chest pain. Gastrointestinal: Per HPI Urinary: No dysuria. Musculoskeletal: No myalgias/arthralgias. Neurologic: No headache. ED EXAM, GENERAL - Physical Exam Exam: See Below Free Text/Narrative:: General Appearance: No acute distress, appears comfortable Skin: No rash HEENT: Normocephalic/atraumatic, sclera anicteric, mucous membranes dry Neck: Normal range of motion Chest and Lungs: Bilateral breath sounds, clear to auscultation Cardiovascular: Regular rate and rhythm Abdomen: Soft, non-tender Musculoskeletal: No edema or tenderness Neurologic: Awake, alert, no obvious deficits, moving all extremities Psychiatric: Appropriate, cooperative Course - Vital Signs Last Recorded V/S: Last Vital Signs Temp 96.8 F L 04/17/21 09:11 Pulse 84 04/17/21 10:58 Resp 16 04/17/21 10:24 BP 121/77 04/17/21 10:58 Pulse Ox 93 L 04/17/21 10:58 - Orders/Labs/Meds Orders: Active Orders 24 hr Category Date Time Status Sodium Chloride 0.9% [Normal Saline] 1,000 ml Med 04/17/21 10:15 Active IV ASDIRECTED Sodium Chloride 0.9% [Saline Flush] Med 04/17/21 09:29 Active 10 ml FLUSH ASDIRECTED PRN Sodium Chloride 0.9% [Saline Flush] Med 04/17/21 09:29 Active 2.5 ml FLUSH ASDIRECTED PRN Saline Lock Insert [OM.PC] Stat Oth 04/17/21 09:29 Ordered Medication Orders Sodium Chloride (Normal Saline) 1,000 mls @ 999 mls/hr IV ASDIRECTED SUZANNE Last Admin: 04/17/21 10:04 Dose: 999 mls/hr Documented by: ASHLEY Sodium Chloride (Sodium Chloride 0.9% 10 Ml Syringe) 10 ml FLUSH ASDIRECTED PRN PRN Reason: Keep Vein Open Last Admin: 04/17/21 09:38 Dose: 10 ml Documented by: NILA Sodium Chloride (Sodium Chloride 0.9% 2.5 Ml Syringe) 2.5 ml FLUSH ASDIRECTED PRN PRN Reason: Keep Vein Open Last Admin: 04/17/21 09:36 Dose: 2.5 ml Documented by: NILA Labs: Laboratory Tests 04/17/21 04/17/21 Range/Units 09:17 09:17 WBC 11.30 H (4.0-11.0) K/uL RBC 6.16 H (4.50-5.90) M/uL Hgb 17.6 H (13.0-17.0) g/dL Hct 50.9 H (38.0-50.0) % MCV 82.6 (80.0-98.0) fL MCH 28.6 (27.0-32.0) pg MCHC 34.6 (31.0-37.0) g/dL RDW Std Deviation 41.1 (28.0-62.0) fl RDW Coeff of Luana 14 (11.0-15.0) % Plt Count 533 H (150-400) K/uL MPV 10.30 (7.40-12.00) fL Add Manual Diff YES Neutrophils % (Manual) 62 (48.0-80.0) % Lymphocytes % (Manual) 32 (16.0-40.0) % Monocytes % (Manual) 5 (0.0-15.0) % Eosinophils % (Manual) 1 (0.0-7.0) % Nucleated RBC % 0.0 /100WBC Absolute Seg Neuts 7.0 H (1.4-5.7) Lymphocytes # (Manual) 3.6 H (0.6-2.4) Monocytes # (Manual) 0.6 (0.0-0.8) Eosinophils # (Manual) 0.1 (0.0-0.7) Nucleated RBCs # 0 K/uL Sodium 135 L (136-148) mmol/L Potassium 3.7 (3.5-5.1) mmol/L Chloride 97 L (98-107) mmol/L Carbon Dioxide 26.2 (21.0-32.0) mmol/L BUN 19 H (7.0-18.0) mg/dL Creatinine 1.3 (0.8-1.3) mg/dL Est Cr Clr Drug Dosing 57.94 mL/min Estimated GFR (MDRD) 57.3 ml/min Glucose 108 H (74-106) mg/dL Calcium 8.8 (8.5-10.1) mg/dL Total Bilirubin 1.0 (0.2-1.0) mg/dL AST 83 H (15-37) IU/L ALT 77 H (14-63) IU/L Alkaline Phosphatase 110 (46-116) U/L Total Protein 8.2 (6.4-8.2) g/dL Albumin 2.9 L (3.4-5.0) g/dL Globulin 5.3 H (2.6-4.0) g/dL Albumin/Globulin Ratio 0.6 L (0.9-1.6) Meds: Medications Generic Name Dose Route Start Last Admin Trade Name Freq PRN Reason Stop Dose Admin Sodium Chloride 1,000 mls @ 999 mls/hr 04/17/21 10:15 04/17/21 10:04 Normal Saline IV 999 mls/hr ASDIRECTED SUZANNE Administration Sodium Chloride 10 ml 04/17/21 09:29 04/17/21 09:38 Sodium Chloride 0.9% 10 Ml Syringe FLUSH 10 ml ASDIRECTED PRN Administration Keep Vein Open Sodium Chloride 2.5 ml 04/17/21 09:29 04/17/21 09:36 Sodium Chloride 0.9% 2.5 Ml Syringe FLUSH 2.5 ml ASDIRECTED PRN Administration Keep Vein Open Discontinued Medications Generic Name Dose Route Start Last Admin Trade Name Freq PRN Reason Stop Dose Admin Lactated Ringer's 1,000 mls @ 999 mls/hr 04/17/21 09:30 04/17/21 09:34 Ringers, Lactated IV 04/17/21 10:30 999 mls/hr .BOLUS ONE Administration Ondansetron HCl 4 mg 04/17/21 09:30 04/17/21 09:34 Ondansetron 4 Mg/2 Ml Sdv IVPUSH 04/17/21 09:31 4 mg ONETIME ONE Administration Departure - Departure Time of Disposition: 11:26 Disposition: Home, Self-Care 01 Condition: Good Clinical Impression: COVID-19 - Discharge Information *PRESCRIPTION DRUG MONITORING PROGRAM REVIEWED*: Not Applicable *COPY OF PRESCRIPTION DRUG MONITORING REPORT IN PATIENT JULI: Not Applicable Prescriptions: Prochlorperazine Maleate [Compazine] 10 mg PO TID PRN 4 Days #12 tablet PRN Reason: nausea / vomiting Ondansetron [Zofran ODT] 4 mg PO Q6H PRN 4 Days #16 tab.dis PRN Reason: nausea and vomiting Instructions: 10 Things You Can Do to Manage Your COVID-19 Symptoms at Home - [facility] (11/13/2020) Referrals: PCP,None [Primary Care Provider] - Forms: ED Department Discharge Additional Instructions: Your symptoms are consistent with COVID-19 infection that you are still recovering from. Your labs today showed some dehydration and you were given 2 bags of IV fluid for this. A prescription for Zofran which is an antinausea medicine that dissolves under your tongue was sent to the pharmacy. This likely will not help your problems with poor taste and smell but should help make it easier for you to keep food down. I encourage you to follow-up with your primary care doctor. If you do not have a primary care doctor you can follow-up with one of the clinics listed below. [facility] - Primary Care [address] [place] [address] [place] [address] The following information is given to patients seen in the emergency department who are being discharged to home. This information is to outline your options for follow-up care. We provide all patients seen in our emergency department with a follow-up referral. The need for follow-up, as well as the timing and circumstances, are variable depending upon the specifics of your emergency department visit. If you don't have a primary care physician on staff, we will provide you with a referral. We always advise you to contact your personal physician following an emergency department visit to inform them of the circumstance of the visit and for follow-up with them and/or the need for any referrals to a consulting specialist. The emergency department will also refer you to a specialist when appropriate. This referral assures that you have the opportunity for follow-up care with a specialist. All of these measure are taken in an effort to provide you with optimal care, which includes your follow-up. Under all circumstances we always encourage you to contact your private physician who remains a resource for coordinating your care. When calling for follow-up care, please make the office aware that this follow-up is from your recent emergency room visit. If for any reason you are refused follow-up, please contact the [facility] Emergency Department at and asked to speak to the emergency department charge nurse. Sepsis Event Note (ED) - Evaluation Sepsis Screening Result: No Definite Risk - Focused Exam Vital Signs: Vital Signs Temp Pulse Resp BP Pulse Ox 04/17/21 10:58 84 121/77 93 L 04/17/21 10:24 87 16 115/73 98 04/17/21 09:11 96.8 F L 92 18 100/46 L 95 - My Orders Last 24 Hours: My Active Orders 04/17/21 09:29 Sodium Chloride 0.9% [Saline Flush] 10 ml FLUSH ASDIRECTED PRN Sodium Chloride 0.9% [Saline Flush] 2.5 ml FLUSH ASDIRECTED PRN Saline Lock Insert [OM.PC] Stat 04/17/21 10:15 Sodium Chloride 0.9% [Normal Saline] 1,000 ml IV ASDIRECTED - Assessment/Plan Last 24 Hours: My Active Orders 04/17/21 09:29 Sodium Chloride 0.9% [Saline Flush] 10 ml FLUSH ASDIRECTED PRN Sodium Chloride 0.9% [Saline Flush] 2.5 ml FLUSH ASDIRECTED PRN Saline Lock Insert [OM.PC] Stat 04/17/21 10:15 Sodium Chloride 0.9% [Normal Saline] 1,000 ml IV ASDIRECTED Assessment:: 55-year-old male presenting with symptoms consistent with his COVID-19 infection. His abdominal exam is benign he has no abdominal pain I do not have a clinical concern for GI bleed or pancreatitis significant viral related hepatitis could be contributing to his symptoms and that is unlikely but LFTs are pending. Patient is clinically dehydrated given his dry mucous membranes and IV fluid is been ordered. IV Zofran will be given as well. VERÓNICA is a consideration. If his labs are reassuring the patient will be stable for discharge home with Zofran. 1005: Patient's labs show significant hemoconcentration consistent with his clinical findings of dehydration. Is a mild hyponatremia he is not acidotic. Patient will be given a liter of NS. 1100: Pt feels significantly improved after the IVF. Pt has zofran at home already that is helping only marginally. Will add compazine rx. Pt's VS are normal, he ambulates with a steady gait and is felt safe for dc.
[2021-04-17 09:55] LABS: CARBON DIOXIDE,CO2 26.2 mmol/L (21.0-32.0); POTASSIUM,K 3.7 mmol/L (3.5-5.1)
[2021-04-17] MEDS ORDERED: Sodium Chloride 0.9% 1,000 ML IV SCH (10:15)
== END 2021-04-17 11:44 | disposition home or self-care (01) ==
LOC: MW.ED 09:08
DX: U07.1 COVID-19 (principal); I10 Essential (primary) hypertension; E66.9 Obesity, unspecified; Z68.34 Body mass index [BMI] 34.0-34.9, adult; Z79.899 Other long term (current) drug therapy; Z88.5 Allergy status to narcotic agent
CPT/HCPCS: 36415; 80053; 85025; 96374; 99284; J2405; J7030; J7120

== ENCOUNTER 2021-04-19 19:55 | Emergency (ER) | payer BC ==
[2021-04-19] MEDS ORDERED: Sodium Chloride 0.9% 10 ML Syringe FLUSH PRN (22:17)
[2021-04-19] MEDS ORDERED: Sodium Chloride 0.9% 2.5 ML Syringe FLUSH PRN (22:17)
[2021-04-19] MEDS ORDERED: Sodium Chloride 0.9% 1,000 ML IV ONE (22:17)
[2021-04-19] MEDS ORDERED: methylPREDNISolone Sodium Succinate 125 MG/2 ML SDV IVPUSH ONE (22:20)
--- NOTE | 2021-04-19 22:20 | EDM.PDOC ---
ED HPI GENERAL MEDICAL PROBLEM - General Chief Complaint: Allergic Reaction Stated Complaint: POSSIBEL ALLERGIC REACTION Time Seen by Provider: 04/19/21 22:08 - History of Present Illness INITIAL COMMENTS - FREE TEXT/NARRATIVE: History of present illness: [] Patient being treated for COVID-19 and received monoclonal antibodies 2 days ago. He is appetite is poor and he is not eating. He says his upper lip swollen. His testicles and scrotum are swollen and red. Patient has no other new symptoms. He said there was a spider in the area of his pants today and he wondered if that caused the problem. Review of systems: As per history of present illness and below otherwise all systems reviewed and negative. Past medical history: As per history of present illness and as reviewed below otherwise noncontributory. Surgical history: As per history of present illness and as reviewed below otherwise noncontributory. Social history: No reported history of drug or alcohol abuse. Family history: As per history of present illness and as reviewed below otherwise noncontributory. Physical exam: Constitutional - well developed, well-nourished and in no acute distress HEENT -he feels like his lip is swollen. I have not seen the man before but there is no obvious edema redness or tenderness about the lip. Voice is normal. Normocephalic, no evidence of trauma - external nose and mouth normal - no mass in neck and no JVD - mucosae moist EYES - full EOM, PERRL, no icterus - no evidence of inflammation, injection, or drainage Respiratory - no respiratory distress, equal bilateral expansion, lungs clear to auscultation and no abnormal lung sounds Cardiovascular - Regular Rhythm with S1 and S2 appreciated and no murmur, gallop or rub. GI - abdomen soft without distension or organomegaly - normal bowel sounds - no guard or rebound scrotum and penis both have erythematous edematous skin. Otherwise no acute problem its not hot warm or red. There is no necrosis. Musculoskeletal no gross deformity of long bones or joints - no tenderness, swelling or edema Neurologic - Alert and oriented times four - CN II-XII grossly intact - motor sensory and coordination symmetrically normal Psychiatric - appropriate mood and affect with normal thought content Hematologic - No petechiae or purpura - mucosa appropriate color and sclera not pale - normal nail bed color and refill Integument - no rash or evidence of trauma - normal turgor Diagnostics: [] Therapeutics: [] Impression: [] Plan: [] Definitive disposition and diagnosis as appropriate pending reevaluation and review of above. - Related Data Allergies Allergy/AdvReac Type Severity Reaction Status Date / Time morphine Allergy Headache Verified 04/19/21 20:45 Home Meds: Home Meds Lisinopril/Hydrochlorothiazide [Lisinopril-Hctz 20-12.5 mg Tab] 1 tab PO DAILY 08/23/18 [History] Ondansetron [Zofran ODT] 4 mg PO Q6H PRN 4 Days #16 tab.dis 04/17/21 [Rx] Prochlorperazine Maleate [Compazine] 10 mg PO TID PRN 4 Days #12 tablet 04/17/21 [Rx] methylPREDNISolone [Medrol Dose Pack] 4 mg PO DAILY #21 tab 04/19/21 [Rx] Past Medical History HEENT History: Reports: Other (See Below) Other HEENT History: reading glasses Cardiovascular History: Reports: Hypertension Respiratory History: Reports: None Gastrointestinal History: Reports: Other (See Below) Other Gastrointestinal History: occasional heartburn Genitourinary History: Reports: None Musculoskeletal History: Reports: Fracture Other Musculoskeletal History: hx fx rt hand Neurological History: Reports: None Psychiatric History: Reports: None Endocrine/Metabolic History: Reports: Obesity/BMI 30+ Hematologic History: Reports: None Immunologic History: Reports: None Oncologic (Cancer) History: Reports: None Dermatologic History: Reports: None - Infectious Disease History Infectious Disease History: Reports: Chicken Pox, Mumps - Past Surgical History Head Surgeries/Procedures: Reports: None HEENT Surgical History: Reports: None Cardiovascular Surgical History: Reports: None Respiratory Surgical History: Reports: None GI Surgical History: Reports: Appendectomy, Cholecystectomy Male Surgical History: Reports: None Endocrine Surgical History: Reports: None Neurological Surgical History: Reports: None Musculoskeletal Surgical History: Reports: None Oncologic Surgical History: Reports: None Dermatological Surgical History: Reports: None Social & Family History - Family History Family Medical History: No Pertinent Family History - Caffeine Use Caffeine Use: Reports: Coffee Caffeine Use Comment: maybe 1 cup a day ED ROS ALLERGIC REACTION - Review of Systems Review Of Systems: Comprehensive ROS is negative, except as noted in HPI. ED EXAM GENERAL NO PERIP PULSE - Physical Exam Exam: See Below Text/Narrative:: My physical exam is in the HPI Course - Vital Signs Last Recorded V/S: Last Vital Signs Temp 36.1 C 04/19/21 20:45 Pulse 75 04/19/21 22:30 Resp 18 04/19/21 22:30 BP 102/68 04/19/21 22:30 Pulse Ox 93 L 04/19/21 22:30 - Orders/Labs/Meds Orders: Active Orders 24 hr Category Date Time Status Sodium Chloride 0.9% [Saline Flush] Med 04/19/21 22:17 Active 10 ml FLUSH ASDIRECTED PRN Sodium Chloride 0.9% [Saline Flush] Med 04/19/21 22:17 Active 2.5 ml FLUSH ASDIRECTED PRN Saline Lock Insert [OM.PC] Stat Oth 04/19/21 22:17 Ordered Medication Orders Sodium Chloride (Sodium Chloride 0.9% 10 Ml Syringe) 10 ml FLUSH ASDIRECTED PRN PRN Reason: Keep Vein Open Sodium Chloride (Sodium Chloride 0.9% 2.5 Ml Syringe) 2.5 ml FLUSH ASDIRECTED PRN PRN Reason: Keep Vein Open Labs: Laboratory Tests 04/19/21 04/19/21 04/19/21 Range/Units 20:52 22:30 22:30 WBC 12.94 H (4.0-11.0) K/uL RBC 5.72 (4.50-5.90) M/uL Hgb 16.7 (13.0-17.0) g/dL Hct 47.1 (38.0-50.0) % MCV 82.3 (80.0-98.0) fL MCH 29.2 (27.0-32.0) pg MCHC 35.5 (31.0-37.0) g/dL RDW Std Deviation 41.6 (28.0-62.0) fl RDW Coeff of Luana 14 (11.0-15.0) % Plt Count 684 H (150-400) K/uL MPV 10.90 (7.40-12.00) fL Neut % (Auto) 69.1 (48.0-80.0) % Lymph % (Auto) 17.2 (16.0-40.0) % [place] % (Auto) 12.9 (0.0-15.0) % Eos % (Auto) 0.6 (0.0-7.0) % Baso % (Auto) 0.2 (0.0-1.5) % Neut # (Auto) 8.9 H (1.4-5.7) K/uL Lymph # (Auto) 2.2 (0.6-2.4) K/uL [place] # (Auto) 1.7 H (0.0-0.8) K/uL Eos # (Auto) 0.1 (0.0-0.7) K/uL Baso # (Auto) 0.0 (0.0-0.1) K/uL Nucleated RBC % 0.0 /100WBC Nucleated RBCs # 0 K/uL Sodium 137 (136-148) mmol/L Potassium 4.0 (3.5-5.1) mmol/L Chloride 102 (98-107) mmol/L Carbon Dioxide 22.5 (21.0-32.0) mmol/L BUN 19 H (7.0-18.0) mg/dL Creatinine 1.0 (0.8-1.3) mg/dL Est Cr Clr Drug Dosing TNP Estimated GFR (MDRD) > 60.0 ml/min Glucose 95 (74-106) mg/dL Calcium 8.8 (8.5-10.1) mg/dL Total Bilirubin 0.7 (0.2-1.0) mg/dL AST 58 H (15-37) IU/L ALT 68 H (14-63) IU/L Alkaline Phosphatase 96 (46-116) U/L B-Natriuretic Peptide (<100) PG/ML Total Protein 7.5 (6.4-8.2) g/dL Albumin 2.8 L (3.4-5.0) g/dL Globulin 4.7 H (2.6-4.0) g/dL Albumin/Globulin Ratio 0.6 L (0.9-1.6) Urine Color YELLOW Urine Appearance CLEAR Urine pH 6.0 (5.0-8.0) Ur Specific [place] >= 1.030 (1.001-1.035) Urine Protein NEGATIVE (NEGATIVE) mg/dL Urine Glucose (UA) NEGATIVE (NEGATIVE) mg/dL Urine Ketones TRACE H (NEGATIVE) mg/dL Urine Occult Blood NEGATIVE (NEGATIVE) Urine Nitrite NEGATIVE (NEGATIVE) Urine Bilirubin NEGATIVE (NEGATIVE) Urine Urobilinogen 1.0 (<2.0) EU/dL Ur Leukocyte Esterase NEGATIVE (NEGATIVE) 04/19/21 Range/Units 22:30 WBC (4.0-11.0) K/uL RBC (4.50-5.90) M/uL Hgb (13.0-17.0) g/dL Hct (38.0-50.0) % MCV (80.0-98.0) fL MCH (27.0-32.0) pg MCHC (31.0-37.0) g/dL RDW Std Deviation (28.0-62.0) fl RDW Coeff of Luana (11.0-15.0) % Plt Count (150-400) K/uL MPV (7.40-12.00) fL Neut % (Auto) (48.0-80.0) % Lymph % (Auto) (16.0-40.0) % [place] % (Auto) (0.0-15.0) % Eos % (Auto) (0.0-7.0) % Baso % (Auto) (0.0-1.5) % Neut # (Auto) (1.4-5.7) K/uL Lymph # (Auto) (0.6-2.4) K/uL [place] # (Auto) (0.0-0.8) K/uL Eos # (Auto) (0.0-0.7) K/uL Baso # (Auto) (0.0-0.1) K/uL Nucleated RBC % /100WBC Nucleated RBCs # K/uL Sodium (136-148) mmol/L Potassium (3.5-5.1) mmol/L Chloride (98-107) mmol/L Carbon Dioxide (21.0-32.0) mmol/L BUN (7.0-18.0) mg/dL Creatinine (0.8-1.3) mg/dL Est Cr Clr Drug Dosing Estimated GFR (MDRD) ml/min Glucose (74-106) mg/dL Calcium (8.5-10.1) mg/dL Total Bilirubin (0.2-1.0) mg/dL AST (15-37) IU/L ALT (14-63) IU/L Alkaline Phosphatase (46-116) U/L B-Natriuretic Peptide 4 (<100) PG/ML Total Protein (6.4-8.2) g/dL Albumin (3.4-5.0) g/dL Globulin (2.6-4.0) g/dL Albumin/Globulin Ratio (0.9-1.6) Urine Color Urine Appearance Urine pH (5.0-8.0) Ur Specific [place] (1.001-1.035) Urine Protein (NEGATIVE) mg/dL Urine Glucose (UA) (NEGATIVE) mg/dL Urine Ketones (NEGATIVE) mg/dL Urine Occult Blood (NEGATIVE) Urine Nitrite (NEGATIVE) Urine Bilirubin (NEGATIVE) Urine Urobilinogen (<2.0) EU/dL Ur Leukocyte Esterase (NEGATIVE) Meds: Medications Generic Name Dose Route Start Last Admin Trade Name Freq PRN Reason Stop Dose Admin Sodium Chloride 10 ml 04/19/21 22:17 Sodium Chloride 0.9% 10 Ml Syringe FLUSH ASDIRECTED PRN Keep Vein Open Sodium Chloride 2.5 ml 04/19/21 22:17 Sodium Chloride 0.9% 2.5 Ml Syringe FLUSH ASDIRECTED PRN Keep Vein Open Discontinued Medications Generic Name Dose Route Start Last Admin Trade Name Freq PRN Reason Stop Dose Admin Sodium Chloride 1,000 mls @ 999 mls/hr 04/19/21 22:17 04/19/21 22:34 Normal Saline IV 04/19/21 23:17 999 mls/hr .Bolus ONE Administration Methylprednisolone Sodium Succinate 125 mg 04/19/21 22:20 04/19/21 22:34 Methylprednisolone Sodium Succinate 125 Mg/2 Ml Sdv IVPUSH 04/19/21 22:21 125 mg ONETIME ONE Administration - Re-Assessments/Exams Free Text/Narrative Re-Assessment/Exam: 04/19/21 23:56 Lipids currently improved Departure - Departure Time of Disposition: 23:56 Disposition: Home, Self-Care 01 Condition: Good Clinical Impression: Angioedema - Discharge Information Prescriptions: methylPREDNISolone [Medrol Dose Pack] 4 mg PO DAILY #21 tab Forms: ED Department Discharge Additional Instructions: Your prescription went to [place] pharmacy Take Benadryl 3 times a day for 3 days. Fill the prescription for the steroid Dosepak. Tell your doctor you had angioedema and you are on lisinopril so we can decide about medication regimen. [facility] [address] [place] [id number] [facility] [address] [place] [id number] The following information is given to patients seen in the emergency department who are being discharged to home. This information is to outline your options for follow-up care. We provide all patients seen in our emergency department with a follow-up referral. The need for follow-up, as well as the timing and circumstances, are variable depending upon the specifics of your emergency department visit. If you don't have a primary care physician on staff, we will provide you with a referral. We always advise you to contact your personal physician following an emergency department visit to inform them of the circumstance of the visit and for follow-up with them and/or the need for any referrals to a consulting specialist. The emergency department will also refer you to a specialist when appropriate. This referral assures that you have the opportunity for follow-up care with a specialist. All of these measure are taken in an effort to provide you with optimal care, which includes your follow-up. Under all circumstances we always encourage you to contact your private physician who remains a resource for coordinating your care. When calling for follow-up care, please make the office aware that this follow-up is from your recent emergency room visit. If for any reason you are refused follow-up, please contact the [facility] Emergency Department at and asked to speak to the emergency department charge nurse. Sepsis Event Note (ED) - Evaluation Sepsis Screening Result: No Definite Risk - Focused Exam Vital Signs: Vital Signs Temp Pulse Resp BP Pulse Ox 04/19/21 22:30 75 18 102/68 93 L 04/19/21 20:45 36.1 C 86 16 84/53 L 96 - My Orders Last 24 Hours: My Active Orders 04/19/21 22:17 Sodium Chloride 0.9% [Saline Flush] 10 ml FLUSH ASDIRECTED PRN Sodium Chloride 0.9% [Saline Flush] 2.5 ml FLUSH ASDIRECTED PRN Saline Lock Insert [OM.PC] Stat - Assessment/Plan Last 24 Hours: My Active Orders 04/19/21 22:17 Sodium Chloride 0.9% [Saline Flush] 10 ml FLUSH ASDIRECTED PRN Sodium Chloride 0.9% [Saline Flush] 2.5 ml FLUSH ASDIRECTED PRN Saline Lock Insert [OM.PC] Stat
[2021-04-19 23:07] LABS: BLOOD UREA NITROGEN,BUN 19 mg/dL (7.0-18.0); CARBON DIOXIDE,CO2 22.5 mmol/L (21.0-32.0); CHLORIDE,CL 102 mmol/L (98-107); GLUCOSE RANDOM 95 mg/dL (74-106); SODIUM,NA 137 mmol/L (136-148)
== END 2021-04-20 00:07 | disposition home or self-care (01) ==
LOC: MW.ED 19:55
DX: T78.3XXA Angioneurotic edema, initial encounter (principal); I10 Essential (primary) hypertension; E66.9 Obesity, unspecified; Z79.899 Other long term (current) drug therapy; Z86.16 Personal history of COVID-19; Z88.5 Allergy status to narcotic agent
CPT/HCPCS: 36415; 80053; 81003; 83880; 85025; 96374; 99284; J2930; J7030

== ENCOUNTER 2023-06-12 10:48 | Emergency (ER) | payer BC | END 2023-06-12 12:41 | disposition home or self-care (01) | LOC: MW.ED 10:48 | DX: S60.222A Contusion of left hand, initial encounter (principal); I10 Essential (primary) hypertension; E66.9 Obesity, unspecified; Z79.899 Other long term (current) drug therapy; Z88.5 Allergy status to narcotic agent; W20.8XXA Other cause of strike by thrown, projected or falling object, initial encounter; Z68.31 Body mass index [BMI] 31.0-31.9, adult | CPT/HCPCS: 73130-LT; 99282; 99283 ==